=== PATIENT | female | born 1940 | race Two or more races ===

== ENCOUNTER 2023-01-18 13:14 | Emergency (ER) | payer OTHER ==
[~2023-01-18] VITALS: Ht 139.7 cm; Wt 67.1 kg
[2023-01-18] MEDS ORDERED: CRESTOR10 MG (14:00)
[2023-01-18] MEDS ORDERED: SYNTHROID125 MCG (14:00)
[2023-01-18] MEDS ORDERED: HYDROCHLOROTHIA25 MG (14:01)
== END 2023-01-18 21:38 | disposition home or self-care (01) ==
LOC: ER 13:14
DX: M54.59 Other low back pain (principal)
CPT/HCPCS: 72131; 72170; 96372; 99284; J2360

== ENCOUNTER 2023-05-08 10:05 | Outpatient (CLI) | payer OTHER ==
[~2023-05-08 10:05] MED LIST: CRESTOR10 MG; HYDROCHLOROTHIA25 MG; SYNTHROID125 MCG
== END 2023-05-08 10:13 | disposition home or self-care (01) ==
LOC: SONOGRAMA 10:05
PROVIDERS: ATTEND Pathology Anatomic Pathology & Clinical Pathology
DX: D34 Benign neoplasm of thyroid gland (principal); E06.3 Autoimmune thyroiditis; E04.2 Nontoxic multinodular goiter; R59.0 Localized enlarged lymph nodes